=== PATIENT | male | born 1955 | race African-American/Black ===

== ENCOUNTER 2020-01-03 12:40 | Inpatient (IN) | payer OTHER, MEDICARE ==
[2020-01-03] VITALS (10 sets, daily range): BP systolic 80–145; BP diastolic 41–104
[~2020-01-03] VITALS: Ht 167.6 cm; Wt 83.3 kg
[2020-01-03] MEDS ORDERED: SODIUM CHLORIDE 0.9% 1,000 ML IV ONE (14:13)
[2020-01-03 15:15] LABS: BASOPHILS % 0.2 % (0.0-2.0); EOSINOPHILS % 0.4 % (0.0-5.0); HEMATOCRIT. 29.6 % (42.0-52.0); HEMOGLOBIN. 10.2 g/dL (14.0-18.0); LYMPHOCYTES % 23.3 % (20.0-50.0); MEAN CORPUSCULAR HEMOGLOBIN 31.5 pg (28.0-32.0); MEAN CORPUSCULAR VOLUME 91.4 fL (80.0-94.0); MEAN PLATELET VOLUME 7.9 fl (7.4-10.4); MONOCYTES % 12.4 % (2.0-8.0); NEUTROPHILS % 63.7 % (40.0-76.0); PLATELET 321 x1000/uL (130-400); RED BLOOD CELL COUNT 3.24 mill/uL (4.7-6.1); RED CELL DISTRIBUTION WIDTH 16.4 % (11.6-14.6)
[2020-01-03 15:22] LABS: CHLORIDE 97 mEq/L (98-107)
[2020-01-03 15:27] LABS: INR 1.1; PARTIAL THROMBOPLASTIN TIME 28.6 sec (23.4-31.0); PROTHROMBIN TIME 11.2 sec (9.6-11.0)
[2020-01-03] MEDS ORDERED: PIPERACILLIN/TAZ 3.375G PREMIX 50 ML IV ONE (16:15)
[2020-01-03] MEDS ORDERED: VANCOMYCIN 1 G PREMIX 200 ML IV ONE (16:15)
[2020-01-03] MEDS ORDERED: LEVETIRACETAM 500MG PREMIX 100 ML IV ONE (16:30)
[2020-01-03] MEDS ORDERED: NICARDIPINE 40MG/200ML PREMIX 200 ML IV PRN (18:30)
[2020-01-03] MEDS ORDERED: ACETAMINOPHEN 650MG SUPP PR PRN (18:45)
[2020-01-03] MEDS ORDERED: ONDANSETRON HCL 4MG/2ML INJ IV PRN (18:45)
[2020-01-03] MEDS ORDERED: DIPHENHYDRAMINE 50MG/ML VIAL IV PRN (18:45)
[2020-01-03 19:05] LABS: C REACTIVE PROTEIN CARDIAC 6.3 mg/L (0.00-3.00)
[2020-01-03 20:00] LABS: INR 1.1; PROTHROMBIN TIME 11.4 sec (9.6-11.0)
[2020-01-03] MEDS ORDERED: AZITHROMYCIN 500 MG in DEXT 5% WATER 250 ML IV SCH (20:00)
[2020-01-03] MEDS ORDERED: CEFTRIAXONE 1 G PREMIX 50 ML IV SCH (21:00)
[2020-01-03] MEDS ORDERED: NICARDIPINE 50 MG in SODIUM CHLORIDE 0.9% 230 ML IV PRN (21:45)
[2020-01-03] MEDS ORDERED: MORPHINE SULFATE 2 MG/ML CPJ (NOT FOR IM USE) IV PRN (22:00)
[2020-01-03] MEDS: DEXT 5%/LACTATED RINGERS 1,000 ML IV SCH (22:34)
[2020-01-03] MEDS: CEFTRIAXONE 1 G PREMIX 50 ML IV SCH (23:00)
[2020-01-03 23:29] LABS: CLARITY URINE CLEAR (CLEAR); COLOR URINE YELLOW (YELLOW); KETONES URINE NEGATIVE (NEGATIVE); LEUKOCYTE ESTERASE URINE NEGATIVE (NEGATIVE); NITRITE URINE NEGATIVE (NEGATIVE); OCCULT BLOOD URINE 1+ (NEGATIVE); PH URINE 8.5 (4.5-8.0); PROTEIN URINE TRACE (NEGATIVE); SPECIFIC GRAVITY URINE 1.009 (1.005-1.030); UROBILINOGEN URINE 0.2 E.U./dL (0.2-1.0)
[2020-01-03 23:58] LABS: ETHANOL BLOOD < 10 mg/dL
[2020-01-04] VITALS (90 sets, daily range): BP systolic 87–159; BP diastolic 38–117
[2020-01-04] MEDS: DEXAMETHASONE 4MG/ML 1ML VIAL IV SCH ×4 (00:01→18:04)
[2020-01-04 00:02] LABS: CREATINE KINASE 37 IU/L (39-308)
[2020-01-04] MEDS: NICARDIPINE 100 MG in SODIUM CHLORIDE 0.9% 60 ML IV PRN ×2 (00:02→19:31)
[2020-01-04 00:04] LABS: CREATINE KINASE MB FRACTION 2.2 ng/mL (0.5-3.6)
[2020-01-04 04:47] LABS: *AMPHETAMINES SCREEN URINE NEGATIVE (NEGATIVE); *BARBITURATES SCREEN URINE NEGATIVE (NEGATIVE); *BENZODIAZEPINES SCREEN URINE NEGATIVE (NEGATIVE); *COCAINE SCREEN URINE NEGATIVE (NEGATIVE); CANNABINOID URINE SCREEN NEGATIVE (NEGATIVE)
[2020-01-04 04:48] LABS: METHADONE URINE SCREEN NEGATIVE (NEGATIVE); OPIATES URINE SCREEN NEGATIVE (NEGATIVE); PHENCYCLIDINE URINE SCREEN NEGATIVE (NEGATIVE)
[2020-01-04 05:49] LABS: BASOPHILS % 0.6 % (0.0-2.0); EOSINOPHILS % 0.1 % (0.0-5.0); HEMATOCRIT. 28.2 % (42.0-52.0); HEMOGLOBIN. 9.7 g/dL (14.0-18.0); LYMPHOCYTES % 9.1 % (20.0-50.0); MEAN CORPUSCULAR HEMOGLOBIN 31.4 pg (28.0-32.0); MEAN CORPUSCULAR VOLUME 91.5 fL (80.0-94.0); MEAN PLATELET VOLUME 8.3 fl (7.4-10.4); NEUTROPHILS % 85.2 % (40.0-76.0); PLATELET 293 x1000/uL (130-400); RED BLOOD CELL COUNT 3.08 mill/uL (4.7-6.1); RED CELL DISTRIBUTION WIDTH 16.7 % (11.6-14.6)
[2020-01-04 06:05] LABS: CHLORIDE 101 mEq/L (98-107)
[2020-01-04 06:10] LABS: INR 1.1; PARTIAL THROMBOPLASTIN TIME 24.2 sec (23.4-31.0); PROTHROMBIN TIME 11.2 sec (9.6-11.0)
[2020-01-04 06:15] LABS: HDL CHOLESTEROL 29 mg/dL (40-59); LDL CHOLESTEROL 50 mg/dL (5-100)
[2020-01-04 06:16] LABS: CREATINE KINASE 40 IU/L (39-308)
[2020-01-04 06:18] LABS: CREATINE KINASE MB FRACTION 3.3 ng/mL (0.5-3.6)
[2020-01-04] MEDS ORDERED: BACITRACIN 15GM TUBE TOP ONE (06:55)
[2020-01-04] MEDS ORDERED: BACITRACIN 50,000 UNITS/VIAL ONE (06:56)
[2020-01-04] MEDS ORDERED: LIDOCAINE HCL/EPINEPHRINE 1%-EPI 1:100,000 20 ML VIAL ONE (06:56)
[2020-01-04] MEDS ORDERED: THROMBIN (BOVINE) 5000 UNITS/VIAL TOP ONE (06:56)
[2020-01-04] MEDS ORDERED: NEOSTIGMINE METHYLSULFATE 1MG/ML 10 ML VIAL ONE (07:21)
[2020-01-04] MEDS ORDERED: ROCURONIUM BROMIDE 10MG/ML VIAL 5ML IV ONE ×2 (07:21→08:03)
[2020-01-04] MEDS ORDERED: FENTANYL CITRATE/PF 50MCG/ML 2ML VIAL ONE (07:21)
[2020-01-04] MEDS ORDERED: CEFAZOLIN SODIUM 1000MG/VIAL ONE (07:22)
[2020-01-04] MEDS ORDERED: GLYCOPYRROLATE 0.2 MG/ML 2ML VIAL ONE (07:22)
[2020-01-04] MEDS ORDERED: LIDOCAINE HCL/PF 1% 10 MG/ML 5ML VIAL ONE (07:22)
[2020-01-04] MEDS ORDERED: SUCCINYLCHOLINE CHLORIDE 200MG/10ML IV ONE (07:22)
[2020-01-04] MEDS ORDERED: SODIUM CHLORIDE 0.9% 10ML VIAL ONE (07:22)
[2020-01-04] MEDS ORDERED: PROPOFOL 200MG/20ML VIAL IV ONE (07:22)
[2020-01-04] MEDS ORDERED: PHENYLEPHRINE HCL 10 MG/ML 1ML (IV VIAL) IV ONE (07:22)
[2020-01-04] MEDS ORDERED: MIDAZOLAM HCL 2 MG/2 ML VIAL ONE (07:22)
[2020-01-04] MEDS ORDERED: EPHEDRINE SULFATE 50MG/ML VIAL ONE (07:22)
[2020-01-04] MEDS ORDERED: METOCLOPRAMIDE HCL 10MG/2ML VIAL ONE (07:23)
[2020-01-04] MEDS ORDERED: DEXAMETHASONE 4MG/ML 1ML VIAL ONE (07:23)
[2020-01-04] MEDS ORDERED: LEVETIRACETAM 500MG PREMIX 100 ML IV ONE (07:23)
[2020-01-04] MEDS ORDERED: ONDANSETRON HCL 4MG/2ML INJ ONE (07:23)
[2020-01-04] MEDS ORDERED: MANNITOL 20% 0 ML IV ONE (07:23)
[2020-01-04] MEDS ORDERED: DILTIAZEM HCL 5MG/ML 5ML VIAL IV SCH ×2 (09:00)
[2020-01-04] MEDS ORDERED: MORPHINE SULFATE 4 MG/ML CPJ (NOT FOR IM USE) IV ONE (09:00)
[2020-01-04] MEDS: MORPHINE SULFATE 4 MG/ML CPJ (NOT FOR IM USE) IV PRN (09:14)
[2020-01-04] MEDS ORDERED: DEXTROSE 50% WATER 50ML SYRINGE IV PRN (09:15)
[2020-01-04] MEDS: DILTIAZEM HCL 125 MG in DEXT 5% WATER 100 ML IV PRN ×2 (09:15→20:56)
[2020-01-04] MEDS ORDERED: LORAZEPAM 2MG/ML CPJ IV PRN (10:00)
[2020-01-04] MEDS ORDERED: LISI-604 PO (10:59)
[2020-01-04] MEDS ORDERED: LOPHC2 PO (10:59)
[2020-01-04] MEDS ORDERED: ASPI-1497 PO (10:59)
[2020-01-04] MEDS ORDERED: METF-414 PO (10:59)
[2020-01-04] MEDS ORDERED: ATOR40TA70 MT (10:59)
[2020-01-04] MEDS: BLOOD SUGAR DIAGNOSTIC STRIP TEST SCH ×3 (11:59→23:49)
[2020-01-04] MEDS ORDERED: INSULIN LISPRO 100 UNITS/ML SUBCUT SCH (12:00)
[2020-01-04] MEDS: INSULIN LISPRO 100 UNITS/ML SUBCUT SCH ×3 (12:11→23:50)
[2020-01-04] MEDS: CEFAZOLIN 1000MG PREMIX 50 ML IV SCH ×2 (13:12→21:56)
[2020-01-04] MEDS ORDERED: CEFAZOLIN SODIUM 1000MG/VIAL IV SCH (14:00)
[2020-01-04] MEDS: DEXT 5%/LACTATED RINGERS 1,000 ML IV SCH (16:04)
[2020-01-04] MEDS: AZITHROMYCIN 500 MG in DEXT 5% WATER 250 ML IV SCH (20:41)
[2020-01-04] MEDS: LEVETIRACETAM 500MG PREMIX 100 ML IV SCH (20:42)
[2020-01-04] MEDS: CEFTRIAXONE 1 G PREMIX 50 ML IV SCH (20:55)
[2020-01-05] VITALS (93 sets, daily range): BP systolic 85–283; BP diastolic 41–105
[2020-01-05] MEDS: DEXAMETHASONE 4MG/ML 1ML VIAL IV SCH ×5 (00:05→23:39)
[2020-01-05] MEDS: MORPHINE SULFATE 4 MG/ML CPJ (NOT FOR IM USE) IV PRN ×3 (05:20→21:04)
[2020-01-05 05:45] LABS: BASOPHILS % 0.1 % (0.0-2.0); HEMATOCRIT. 22.5 % (42.0-52.0); HEMOGLOBIN. 7.5 g/dL (14.0-18.0); LYMPHOCYTES % 7.8 % (20.0-50.0); MEAN CORPUSCULAR HEMOGLOBIN 30.8 pg (28.0-32.0); MEAN CORPUSCULAR VOLUME 92.1 fL (80.0-94.0); MEAN PLATELET VOLUME 8.1 fl (7.4-10.4); MONOCYTES % 4.5 % (2.0-8.0); NEUTROPHILS % 87.6 % (40.0-76.0); PLATELET 253 x1000/uL (130-400); RED BLOOD CELL COUNT 2.44 mill/uL (4.7-6.1); RED CELL DISTRIBUTION WIDTH 16.2 % (11.6-14.6)
[2020-01-05] MEDS: BLOOD SUGAR DIAGNOSTIC STRIP TEST SCH ×4 (05:51→23:39)
[2020-01-05] MEDS: INSULIN LISPRO 100 UNITS/ML SUBCUT SCH ×4 (05:52→23:40)
[2020-01-05] MEDS: CEFAZOLIN 1000MG PREMIX 50 ML IV SCH (05:53)
[2020-01-05 05:55] LABS: CHLORIDE 105 mEq/L (98-107)
[2020-01-05 06:05] LABS: T4 FREE 1.44 ng/dL (0.76-1.46)
[2020-01-05 06:27] LABS: VITAMIN B12 SERUM 566 pg/mL (211-911)
[2020-01-05] MEDS: DEXT 5%/LACTATED RINGERS 1,000 ML IV SCH (08:46)
[2020-01-05] MEDS: LEVETIRACETAM 500MG PREMIX 100 ML IV SCH ×2 (08:46→21:02)
[2020-01-05] MEDS ORDERED: IPRATROPIUM/ALBUTEROL 0.5-3(2.5)MG/3ML NEB HHN PRN (11:00)
[2020-01-05 11:16] LABS: HEMATOCRIT 26.5 % (42.0-52.0); HEMOGLOBIN 8.9 g/dL (14.0-18.0); MEAN CORPUSCULAR HEMOGLOBIN 30.9 pg (28.0-32.0); MEAN CORPUSCULAR VOLUME 92.1 fL (80.0-94.0); PLATELET 297 x1000/uL (130-400); RED BLOOD CELL COUNT 2.88 mill/uL (4.7-6.1); RED CELL DISTRIBUTION WIDTH 16.8 % (11.6-14.6)
[2020-01-05] MEDS: NICARDIPINE 100 MG in SODIUM CHLORIDE 0.9% 60 ML IV PRN (17:57)
[2020-01-05] MEDS: AZITHROMYCIN 500 MG in DEXT 5% WATER 250 ML IV SCH (20:18)
[2020-01-05] MEDS: CEFTRIAXONE 1 G PREMIX 50 ML IV SCH (21:50)
[2020-01-06] VITALS (87 sets, daily range): BP systolic 44–158; BP diastolic 38–111
[2020-01-06] MEDS: DEXT 5%/LACTATED RINGERS 1,000 ML IV SCH ×2 (01:00→18:50)
[2020-01-06 05:33] LABS: CHLORIDE 104 mEq/L (98-107)
[2020-01-06] MEDS: BLOOD SUGAR DIAGNOSTIC STRIP TEST SCH ×3 (05:54→18:50)
[2020-01-06] MEDS: INSULIN LISPRO 100 UNITS/ML SUBCUT SCH ×3 (05:55→18:50)
[2020-01-06 08:08] LABS: BASOPHILS % 0.2 % (0.0-2.0); HEMATOCRIT. 25.8 % (42.0-52.0); HEMOGLOBIN. 8.7 g/dL (14.0-18.0); LYMPHOCYTES % 7.3 % (20.0-50.0); MEAN CORPUSCULAR VOLUME 91.9 fL (80.0-94.0); MONOCYTES % 4.8 % (2.0-8.0); NEUTROPHILS % 87.7 % (40.0-76.0); PLATELET 277 x1000/uL (130-400); RED CELL DISTRIBUTION WIDTH 16.5 % (11.6-14.6)
[2020-01-06] MEDS: LEVETIRACETAM 500MG PREMIX 100 ML IV SCH ×2 (09:51→20:54)
[2020-01-06] MEDS: MORPHINE SULFATE 2 MG/ML CPJ (NOT FOR IM USE) IV PRN ×2 (12:35→19:56)
[2020-01-06] MEDS: INSULIN GLARGINE UD 100 UNITS/ML SYR SUBCUT SCH ×2 (12:36→21:30)
[2020-01-06] MEDS ORDERED: DIGOXIN 500MCG/2ML AMP IV NR (17:15)
[2020-01-06] MEDS: AZITHROMYCIN 500 MG in DEXT 5% WATER 250 ML IV SCH (19:56)
[2020-01-06] MEDS: CEFTRIAXONE 1 G PREMIX 50 ML IV SCH (21:29)
[2020-01-07] VITALS (95 sets, daily range): BP systolic 96–147; BP diastolic 38–94
[2020-01-07] MEDS: BLOOD SUGAR DIAGNOSTIC STRIP TEST SCH ×5 (00:14→23:06)
[2020-01-07] MEDS: MORPHINE SULFATE 2 MG/ML CPJ (NOT FOR IM USE) IV PRN ×2 (00:17→02:41)
[2020-01-07] MEDS: INSULIN LISPRO 100 UNITS/ML SUBCUT SCH ×5 (00:18→23:05)
[2020-01-07] MEDS: NICARDIPINE 100 MG in SODIUM CHLORIDE 0.9% 60 ML IV PRN ×3 (02:22→21:04)
[2020-01-07 04:54] LABS: HEMATOCRIT. 25.8 % (42.0-52.0); HEMOGLOBIN. 8.6 g/dL (14.0-18.0); MEAN CORPUSCULAR HEMOGLOBIN 30.4 pg (28.0-32.0); MEAN PLATELET VOLUME 7.4 fl (7.4-10.4); PLATELET 300 x1000/uL (130-400); RED BLOOD CELL COUNT 2.83 mill/uL (4.7-6.1)
[2020-01-07 05:04] LABS: CHLORIDE 101 mEq/L (98-107)
[2020-01-07 08:45] LABS: PLATELET ESTIMATE NORMAL
[2020-01-07] MEDS: LEVETIRACETAM 500MG PREMIX 100 ML IV SCH ×2 (08:53→22:00)
[2020-01-07] MEDS: DEXT 5%/LACTATED RINGERS 1,000 ML IV SCH (10:20)
[2020-01-07] MEDS: INSULIN GLARGINE UD 100 UNITS/ML SYR SUBCUT SCH ×2 (11:21→23:00)
[2020-01-07] MEDS: DILTIAZEM HCL 30MG TABLET PO SCH ×3 (11:23→23:05)
[2020-01-07] MEDS: LISINOPRIL 20MG TABLET PO SCH (11:24)
[2020-01-07] MEDS: AZITHROMYCIN 500 MG in DEXT 5% WATER 250 ML IV SCH (20:06)
[2020-01-07] MEDS: CEFTRIAXONE 1 G PREMIX 50 ML IV SCH (22:35)
[2020-01-08] VITALS (83 sets, daily range): BP systolic 40–162; BP diastolic 28–95
[2020-01-08] MEDS: MORPHINE SULFATE 4 MG/ML CPJ (NOT FOR IM USE) IV PRN (04:40)
[2020-01-08] MEDS: BLOOD SUGAR DIAGNOSTIC STRIP TEST SCH ×4 (05:30→23:26)
[2020-01-08] MEDS: INSULIN LISPRO 100 UNITS/ML SUBCUT SCH ×4 (05:30→23:26)
[2020-01-08] MEDS: DILTIAZEM HCL 30MG TABLET PO SCH ×4 (05:31→23:34)
[2020-01-08 06:56] LABS: BASOPHILS % 0.1 % (0.0-2.0); HEMATOCRIT. 27.4 % (42.0-52.0); LYMPHOCYTES % 9.9 % (20.0-50.0); MEAN CORPUSCULAR HEMOGLOBIN 29.9 pg (28.0-32.0); MEAN CORPUSCULAR VOLUME 90.7 fL (80.0-94.0); MONOCYTES % 9.9 % (2.0-8.0); NEUTROPHILS % 80.1 % (40.0-76.0); PLATELET 277 x1000/uL (130-400); RED BLOOD CELL COUNT 3.02 mill/uL (4.7-6.1); RED CELL DISTRIBUTION WIDTH 15.9 % (11.6-14.6)
[2020-01-08 07:08] LABS: CHLORIDE 99 mEq/L (98-107)
[2020-01-08] MEDS: LISINOPRIL 20MG TABLET PO SCH (09:19)
[2020-01-08] MEDS: LEVETIRACETAM 500MG PREMIX 100 ML IV SCH ×2 (09:19→20:33)
[2020-01-08] MEDS: INSULIN GLARGINE UD 100 UNITS/ML SYR SUBCUT SCH ×2 (10:53→21:42)
[2020-01-09] VITALS (12 sets, daily range): BP systolic 92–165; BP diastolic 23–84
[2020-01-09] MEDS: MORPHINE SULFATE 4 MG/ML CPJ (NOT FOR IM USE) IV PRN (02:44)
[2020-01-09] MEDS: DILTIAZEM HCL 30MG TABLET PO SCH (05:35)
[2020-01-09] MEDS: INSULIN LISPRO 100 UNITS/ML SUBCUT SCH ×4 (05:35→23:23)
[2020-01-09] MEDS: BLOOD SUGAR DIAGNOSTIC STRIP TEST SCH ×3 (05:35→18:28)
[2020-01-09] MEDS: LEVETIRACETAM 500MG PREMIX 100 ML IV SCH ×2 (08:14→21:45)
[2020-01-09] MEDS: LISINOPRIL 20MG TABLET PO SCH (08:14)
[2020-01-09] MEDS: INSULIN GLARGINE UD 100 UNITS/ML SYR SUBCUT SCH ×2 (10:00→23:23)
[2020-01-09] MEDS: DILTIAZEM HCL 60MG TABLET PO SCH ×2 (12:13→21:47)
[2020-01-10] VITALS (10 sets, daily range): BP systolic 88–137; BP diastolic 45–102
[2020-01-10] MEDS: BLOOD SUGAR DIAGNOSTIC STRIP TEST SCH ×3 (00:28→12:00)
[2020-01-10] MEDS: DILTIAZEM HCL 60MG TABLET PO SCH ×2 (05:29→13:57)
[2020-01-10] MEDS: INSULIN LISPRO 100 UNITS/ML SUBCUT SCH ×2 (05:30→12:00)
[2020-01-10] MEDS: LEVETIRACETAM 500MG PREMIX 100 ML IV SCH (10:10)
[2020-01-10] MEDS: INSULIN GLARGINE UD 100 UNITS/ML SYR SUBCUT SCH (10:11)
[2020-01-10] MEDS: LISINOPRIL 20MG TABLET PO SCH (10:12)
[2020-01-10] MEDS ORDERED: KEPP500 MT ×2 (11:33→15:50)
[2020-01-10] MEDS ORDERED: DILT180C66 MT ×2 (11:33→15:50)
== END 2020-01-10 18:39 | disposition home or self-care (01) | DRG 26 ==
LOC: ER 12:40 → MICUSO 16:51 → EDBEDREQ 16:55 → EDBEDREQTM 16:55 → ENRESERV 19:44 → MICUNO 01-05 19:30 → 5EST 01-08 22:10
PROVIDERS: ADMIT Internal Medicine; ATTEND Internal Medicine
PROC: 00U207Z Supplement Dura Mater with Autologous Tissue Substitute, Open Approach (ICD-10-PCS; principal; 2020-01-04)
PROC: 00C40ZZ Extirpation of Matter from Intracranial Subdural Space, Open Approach (ICD-10-PCS; 2020-01-04)
PROC: 00H632Z Insertion of Monitoring Device into Cerebral Ventricle, Percutaneous Approach (ICD-10-PCS; 2020-01-04)
PROC: 009400Z Drainage of Intracranial Subdural Space with Drainage Device, Open Approach (ICD-10-PCS; 2020-01-04)
PROC: 0NU007Z Supplement Skull with Autologous Tissue Substitute, Open Approach (ICD-10-PCS; 2020-01-04)
PROC: 4A103BD Monitoring of Intracranial Pressure, Percutaneous Approach (ICD-10-PCS; 2020-01-04)
PROC: 4A103BD Monitoring of Intracranial Pressure, Percutaneous Approach (ICD-10-PCS; 2020-01-04)
DX: S06.5X0A Traumatic subdural hemorrhage without loss of consciousness, initial encounter (principal); G81.94 Hemiplegia, unspecified affecting left nondominant side; I48.20 Chronic atrial fibrillation, unspecified; R47.01 Aphasia; G93.40 Encephalopathy, unspecified; E11.9 Type 2 diabetes mellitus without complications; G93.89 Other specified disorders of brain; F10.21 Alcohol dependence, in remission; D63.8 Anemia in other chronic diseases classified elsewhere; R47.1 Dysarthria and anarthria; I10 Essential (primary) hypertension; E05.90 Thyrotoxicosis, unspecified without thyrotoxic crisis or storm; E78.5 Hyperlipidemia, unspecified; I27.20 Pulmonary hypertension, unspecified; I36.1 Nonrheumatic tricuspid (valve) insufficiency; W18.39XA Other fall on same level, initial encounter; Z20.828 Contact with and (suspected) exposure to other viral communicable diseases; Z79.82 Long term (current) use of aspirin; Z79.84 Long term (current) use of oral hypoglycemic drugs; Z79.899 Other long term (current) drug therapy; Z98.2 Presence of cerebrospinal fluid drainage device; Y93.89 Activity, other specified; Y92.099 Unspecified place in other non-institutional residence as the place of occurrence of the external cause; Y99.8 Other external cause status; Z82.49 Family history of ischemic heart disease and other diseases of the circulatory system
CPT/HCPCS: 36415; 71045; 80048; 80053; 80061; 80305; 80320; 81003; 82550; 82553; 82607; 82728; 82962; 83036; 83605; 83615; 83880; 84439; 84443; 84481; 84484; 85025; 85027; 85379; 86141; 86850; 86900; 88305; 93005; 93306; 93970; 94002; 97162; 99291; C1713; J0330; J0456; J0690; J0696; J1100; J1160; J1200; J1815; J1953; J2250; J2270; J2370; J2405; J2543; J2704; J2710; J2765; J3010; J3370; J3490; J7030; J7050; J7060; J7121; G0480; U0003-CS

== ENCOUNTER 2022-03-27 21:10 | Inpatient (IN) | payer OTHER, MEDICARE ==
[~2022-03-27] VITALS: Ht 170.2 cm; Wt 87.1 kg
[~2022-03-27 21:10] MED LIST: ATOR40TA70 MT; DILT180C66 MT; KEPP500 MT; LISI20TA31 PO; METF-414 PO
[2022-03-27] MEDS ORDERED: MORPHINE SULFATE 4 MG/ML CPJ (NOT FOR IM USE) IV STA (21:35)
[2022-03-27] MEDS ORDERED: ONDANSETRON HCL 4MG/2ML INJ IV STA (21:35)
[2022-03-27] MEDS ORDERED: SODIUM CHLORIDE 0.9% 1,000 ML IV ONE (21:45)
[2022-03-27 22:12] LABS: BASOPHILS % 1.1 % (0.0-2.0); EOSINOPHILS % 2.9 % (0.0-5.0); HEMATOCRIT. 33.7 % (42.0-52.0); HEMOGLOBIN. 11.5 g/dL (14.0-18.0); LYMPHOCYTES % 30.8 % (20.0-50.0); MEAN CORPUSCULAR HEMOGLOBIN 32.8 pg (28.0-32.0); MEAN CORPUSCULAR VOLUME 96.2 fL (80.0-94.0); MEAN PLATELET VOLUME 8.5 fl (7.4-10.4); MONOCYTES % 10.3 % (2.0-8.0); NEUTROPHILS % 54.9 % (40.0-76.0); PLATELET 213 x1000/uL (130-400); RED BLOOD CELL COUNT 3.51 mill/uL (4.7-6.1); RED CELL DISTRIBUTION WIDTH 14.1 % (11.6-14.6)
[2022-03-27 22:21] LABS: PROTHROMBIN TIME 11.1 sec (9.6-11.0)
[2022-03-27 22:39] LABS: CHLORIDE 102 mEq/L (98-107)
[2022-03-27] MEDS ORDERED: HEPARIN 25,000 UNITS PREMIX 250 ML IV ONE (23:15)
[2022-03-27] MEDS ORDERED: NITROGLYCERIN 0.4MG TABLET SL SL PRN (23:15)
[2022-03-27] MEDS ORDERED: HEPARIN 5000 UNITS/ML VIAL IV ONE (23:15)
[2022-03-27] MEDS ORDERED: HEPARIN 60 UNITS/KG BOLUS IV NR (23:45)
[2022-03-28] MEDS ORDERED: HEPARIN 25,000 UNITS PREMIX 250 ML IV SCH (00:15)
[2022-03-28 06:25] VITALS: BP 108/90
[2022-03-28] MEDS ORDERED: HEPARIN BOLUS PRN aPTT <30 IV (07:00)
[2022-03-28] MEDS ORDERED: HEPARIN BOLUS PRN aPTT 30-44 IV (07:00)
[2022-03-28 08:00] VITALS: BP 121/91
[2022-03-28] MEDS ORDERED: HYDROCODONE/ACETAMINOPHEN 5/325MG TABLET PO PRN ×2 (09:00→11:00)
[2022-03-28] MEDS ORDERED: GUAIFENESIN 200MG/10ML SUGAR FREE UDC PO PRN (11:00)
[2022-03-28] MEDS ORDERED: ACETAMINOPHEN 325MG TABLET PO PRN (11:00)
[2022-03-28] MEDS ORDERED: CLONIDINE 0.1MG TABLET PO PRN (11:00)
[2022-03-28] MEDS ORDERED: DOCUSATE SODIUM 100MG CAPSULE PO PRN (11:00)
[2022-03-28] MEDS ORDERED: ONDANSETRON HCL 4MG/2ML INJ IV PRN (11:00)
[2022-03-28] MEDS ORDERED: MAGNESIUM/ALUMINUM HYDROXIDE/SIMETHICONE 30ML UDC PO PRN (11:00)
[2022-03-28] MEDS ORDERED: TRAMADOL 50MG TABLET PO PRN (11:00)
[2022-03-28] MEDS ORDERED: DILTIAZEM HCL 5MG/ML 5ML VIAL IV PRN ×2 (11:30)
[2022-03-28] MEDS: METFORMIN HCL 500MG TABLET PO SCH (11:52)
[2022-03-28 12:00] VITALS: BP 137/93
[2022-03-28] MEDS: DILTIAZEM HCL 60MG TABLET PO SCH ×2 (14:47→21:39)
[2022-03-28] MEDS: NITROGLYCERIN OINT 1GM/INCH UDPKT TD SCH ×2 (14:48→21:41)
[2022-03-28 15:33] VITALS: BP 140/106
[2022-03-28] MEDS: MORPHINE SULFATE 2 MG/ML CPJ (NOT FOR IM USE) IV PRN ×2 (15:35→21:59)
[2022-03-28] MEDS: LEVETIRACETAM 500MG TABLET PO SCH (18:09)
[2022-03-28 20:00] VITALS: BP 127/95
[2022-03-28] MEDS: ENOXAPARIN 100MG/ML SYR SUBCUT SCH (21:00)
[2022-03-28] MEDS ORDERED: DEXTROSE 50% WATER 50ML SYRINGE IV PRN (21:30)
[2022-03-28] MEDS: ATORVASTATIN CALCIUM 40MG TABLET PO SCH (21:41)
[2022-03-28] MEDS ORDERED: NALOXONE HCL 0.4MG/ML VIAL IV PRN (21:45)
[2022-03-29] VITALS: BP 99/57
[2022-03-29 04:00] VITALS: BP 108/67
[2022-03-29] MEDS: DILTIAZEM HCL 60MG TABLET PO SCH ×4 (06:00→21:11)
[2022-03-29] MEDS: NITROGLYCERIN OINT 1GM/INCH UDPKT TD SCH ×3 (06:00→21:11)
[2022-03-29] MEDS: INSULIN LISPRO 100 UNITS/ML SUBCUT SCH ×4 (06:58→20:57)
[2022-03-29] MEDS: BLOOD SUGAR DIAGNOSTIC STRIP TEST SCH ×4 (06:58→20:58)
[2022-03-29 07:34] LABS: BASOPHILS % 0.8 % (0.0-2.0); EOSINOPHILS % 0.9 % (0.0-5.0); HEMATOCRIT. 33.4 % (42.0-52.0); HEMOGLOBIN. 11.6 g/dL (14.0-18.0); LYMPHOCYTES % 22.5 % (20.0-50.0); MEAN CORPUSCULAR HEMOGLOBIN 33.2 pg (28.0-32.0); MEAN CORPUSCULAR VOLUME 95.3 fL (80.0-94.0); MEAN PLATELET VOLUME 9.1 fl (7.4-10.4); NEUTROPHILS % 62.8 % (40.0-76.0); PLATELET 176 x1000/uL (130-400); RED BLOOD CELL COUNT 3.51 mill/uL (4.7-6.1); RED CELL DISTRIBUTION WIDTH 14.2 % (11.6-14.6)
[2022-03-29 08:21] VITALS: BP 126/85
[2022-03-29] MEDS: ASPIRIN 81MG EC TABLET PO SCH (08:33)
[2022-03-29] MEDS: LEVETIRACETAM 500MG TABLET PO SCH ×2 (08:33→18:44)
[2022-03-29] MEDS: METFORMIN HCL 500MG TABLET PO SCH (08:34)
[2022-03-29] MEDS ORDERED: DILTIAZEM HCL 180MG CAPSULE CD 24HR PO SCH (09:00)
[2022-03-29] MEDS ORDERED: LISINOPRIL 20MG TABLET PO SCH (09:00)
[2022-03-29] MEDS: ENOXAPARIN 100MG/ML SYR SUBCUT SCH (09:00)
[2022-03-29 09:58] LABS: CHLORIDE 100 mEq/L (98-107)
[2022-03-29 10:06] LABS: LDL CHOLESTEROL 48 mg/dL (5-100)
[2022-03-29 10:26] LABS: HDL CHOLESTEROL 36 mg/dL (40-59)
[2022-03-29 12:00] VITALS: BP 103/68
[2022-03-29] MEDS ORDERED: MAGNESIUM 2 G PREMIX 50 ML IV NR (12:00)
[2022-03-29 16:13] VITALS: BP 100/64
[2022-03-29 18:05] LABS: TOTAL IRON BINDING CAPACITY 310 ug/dL (250-450)
[2022-03-29 20:00] VITALS: BP 102/62
[2022-03-29] MEDS: ATORVASTATIN CALCIUM 40MG TABLET PO SCH (20:56)
[2022-03-30] VITALS (21 sets, daily range): BP systolic 68–133; BP diastolic 28–83
[2022-03-30 05:35] LABS: BASOPHILS % 0.7 % (0.0-2.0); EOSINOPHILS % 1.1 % (0.0-5.0); HEMATOCRIT. 32.5 % (42.0-52.0); HEMOGLOBIN. 11.1 g/dL (14.0-18.0); LYMPHOCYTES % 24.9 % (20.0-50.0); MEAN CORPUSCULAR HEMOGLOBIN 32.5 pg (28.0-32.0); MEAN CORPUSCULAR VOLUME 95.2 fL (80.0-94.0); MEAN PLATELET VOLUME 9.4 fl (7.4-10.4); MONOCYTES % 13.9 % (2.0-8.0); NEUTROPHILS % 59.4 % (40.0-76.0); PLATELET 157 x1000/uL (130-400); RED BLOOD CELL COUNT 3.41 mill/uL (4.7-6.1); RED CELL DISTRIBUTION WIDTH 14.4 % (11.6-14.6)
[2022-03-30] MEDS: NITROGLYCERIN OINT 1GM/INCH UDPKT TD SCH ×3 (05:38→21:01)
[2022-03-30] MEDS: BLOOD SUGAR DIAGNOSTIC STRIP TEST SCH ×4 (05:38→20:49)
[2022-03-30 05:45] LABS: CHLORIDE 103 mEq/L (98-107)
[2022-03-30] MEDS ORDERED: DILTIAZEM 125MG/125ML PMX 125 ML IV SCH (05:45)
[2022-03-30] MEDS ORDERED: DIGOXIN 500MCG/2ML AMP IV NR (06:00)
[2022-03-30] MEDS: INSULIN LISPRO 100 UNITS/ML SUBCUT SCH ×5 (07:50→21:00)
[2022-03-30] MEDS: METFORMIN HCL 500MG TABLET PO SCH (09:00)
[2022-03-30] MEDS: LISINOPRIL 20MG TABLET PO SCH (09:00)
[2022-03-30] MEDS: LEVETIRACETAM 500MG TABLET PO SCH ×2 (09:00→18:10)
[2022-03-30] MEDS: ASPIRIN 81MG EC TABLET PO SCH (09:00)
[2022-03-30] MEDS: SODIUM CHLORIDE 0.45% 1,000 ML IV SCH (09:28)
[2022-03-30] MEDS ORDERED: IODIXANOL 320MG/ML 100 ML BOTTLE IV ONE ×2 (11:06→12:31)
[2022-03-30] MEDS ORDERED: MIDAZOLAM HCL 2 MG/2 ML VIAL ONE (11:07)
[2022-03-30] MEDS ORDERED: HEPARIN 1000 UNITS/ML 10ML ONE (11:07)
[2022-03-30] MEDS ORDERED: FENTANYL CITRATE/PF 50MCG/ML 2ML VIAL ONE (11:07)
[2022-03-30] MEDS ORDERED: LIDOCAINE HCL/PF 2% 20MG/ML 5 ML/VIAL ONE (11:08)
[2022-03-30] MEDS ORDERED: FUROSEMIDE 20MG/2ML VIAL ONE (12:03)
[2022-03-30] MEDS ORDERED: CLOPIDOGREL 75MG TABLET ONE (12:32)
[2022-03-30] MEDS ORDERED: ASPIRIN 325MG EC TABLET PO ONE (12:32)
[2022-03-30] MEDS ORDERED: ATROPINE SULFATE 1MG/10ML SYR IV PRN (13:00)
[2022-03-30] MEDS ORDERED: ONDANSETRON HCL 4MG/2ML INJ IV PRN (13:00)
[2022-03-30] MEDS ORDERED: ACETAMINOPHEN 325MG TABLET PO PRN (13:00)
[2022-03-30] MEDS ORDERED: POTASSIUM CHLORIDE 20MEQ TABLET SR PO SCH (13:15)
[2022-03-30] MEDS ORDERED: DIGOXIN 250MCG TABLET PO SCH (13:15)
[2022-03-30] MEDS: CARVEDILOL 3.125 MG TABLET PO SCH (20:49)
[2022-03-30] MEDS: ATORVASTATIN CALCIUM 40MG TABLET PO SCH (21:20)
[2022-03-31] VITALS (39 sets, daily range): BP systolic 82–136; BP diastolic 17–92
[2022-03-31] MEDS: SODIUM CHLORIDE 0.45% 1,000 ML IV SCH (03:15)
[2022-03-31 05:30] LABS: BASOPHILS % 0.7 % (0.0-2.0); EOSINOPHILS % 1.8 % (0.0-5.0); HEMATOCRIT. 35.5 % (42.0-52.0); HEMOGLOBIN. 11.9 g/dL (14.0-18.0); LYMPHOCYTES % 23.8 % (20.0-50.0); MEAN CORPUSCULAR HEMOGLOBIN 32.2 pg (28.0-32.0); MEAN CORPUSCULAR VOLUME 95.9 fL (80.0-94.0); MEAN PLATELET VOLUME 9.2 fl (7.4-10.4); MONOCYTES % 13.6 % (2.0-8.0); NEUTROPHILS % 60.1 % (40.0-76.0); PLATELET 159 x1000/uL (130-400); RED CELL DISTRIBUTION WIDTH 14.4 % (11.6-14.6)
[2022-03-31 05:37] LABS: CHLORIDE 103 mEq/L (98-107)
[2022-03-31] MEDS: NITROGLYCERIN OINT 1GM/INCH UDPKT TD SCH ×3 (05:40→20:24)
[2022-03-31] MEDS: INSULIN LISPRO 100 UNITS/ML SUBCUT SCH ×4 (08:20→22:05)
[2022-03-31] MEDS: BLOOD SUGAR DIAGNOSTIC STRIP TEST SCH ×4 (08:20→21:00)
[2022-03-31] MEDS: LEVETIRACETAM 500MG TABLET PO SCH ×2 (08:43→16:25)
[2022-03-31] MEDS: CARVEDILOL 3.125 MG TABLET PO SCH ×2 (08:43→20:24)
[2022-03-31] MEDS: METFORMIN HCL 500MG TABLET PO SCH (08:43)
[2022-03-31] MEDS: CLOPIDOGREL 75MG TABLET PO SCH (08:43)
[2022-03-31] MEDS: DIGOXIN 250MCG TABLET PO SCH (08:43)
[2022-03-31] MEDS: ASPIRIN 81MG TABLET PO SCH (08:43)
[2022-03-31] MEDS: POTASSIUM CHLORIDE 20MEQ TABLET SR PO SCH (08:43)
[2022-03-31] MEDS: LISINOPRIL 20MG TABLET PO SCH (08:44)
[2022-03-31] MEDS ORDERED: DIGOXIN 50MCG/ML ORAL SYR PO SCH (09:00)
[2022-03-31] MEDS ORDERED: FUROSEMIDE 20MG TABLET PO SCH (09:00)
[2022-03-31] MEDS ORDERED: ASPIRIN 325MG TABLET PO SCH (09:00)
[2022-03-31] MEDS: FUROSEMIDE 40MG/4ML VIAL IVP SCH (13:16)
[2022-03-31] MEDS: ATORVASTATIN CALCIUM 40MG TABLET PO SCH (22:04)
[2022-04-01] VITALS (42 sets, daily range): BP systolic 85–148; BP diastolic 44–98
[2022-04-01] MEDS: NITROGLYCERIN OINT 1GM/INCH UDPKT TD SCH (05:51)
[2022-04-01] MEDS: INSULIN LISPRO 100 UNITS/ML SUBCUT SCH ×4 (08:20→21:24)
[2022-04-01] MEDS: BLOOD SUGAR DIAGNOSTIC STRIP TEST SCH ×4 (08:36→21:13)
[2022-04-01] MEDS ORDERED: LISINOPRIL 5MG TABLET PO SCH (09:00)
[2022-04-01] MEDS: ASPIRIN 81MG TABLET PO SCH (09:11)
[2022-04-01] MEDS: METFORMIN HCL 500MG TABLET PO SCH (09:11)
[2022-04-01] MEDS: CLOPIDOGREL 75MG TABLET PO SCH (09:11)
[2022-04-01] MEDS: CARVEDILOL 3.125 MG TABLET PO SCH ×2 (09:11→21:00)
[2022-04-01] MEDS: DIGOXIN 250MCG TABLET PO SCH (09:11)
[2022-04-01] MEDS: LEVETIRACETAM 500MG TABLET PO SCH ×2 (09:11→18:32)
[2022-04-01] MEDS: FUROSEMIDE 40MG/4ML VIAL IVP SCH (09:11)
[2022-04-01] MEDS: POTASSIUM CHLORIDE 20MEQ TABLET SR PO SCH (09:32)
[2022-04-01 17:00] LABS: VITAMIN B12 SERUM 260 pg/mL (211-911)
[2022-04-01 18:58] LABS: FOLIC ACID (FOLATE) SERUM > 20.00 ng/mL (>5.38)
[2022-04-01] MEDS: ATORVASTATIN CALCIUM 40MG TABLET PO SCH (21:24)
[2022-04-02] VITALS: BP 95/80
== END 2022-04-02 01:15 | disposition short-term general hospital (02) | DRG 246 ==
LOC: ER 21:10 → MICUSO 03-28 02:45 → 6WST 03-28 07:09 → 3WST 03-30 08:18 → CVICU 03-30 13:07
PROVIDERS: ADMIT Hospitalist; ATTEND Hospitalist
PROC: 027035Z Dilation of Coronary Artery, One Artery with Two Drug-eluting Intraluminal Devices, Percutaneous Approach (ICD-10-PCS; principal; 2022-03-30)
PROC: 4A023N7 Measurement of Cardiac Sampling and Pressure, Left Heart, Percutaneous Approach (ICD-10-PCS; 2022-03-30)
PROC: B211YZZ Fluoroscopy of Multiple Coronary Arteries using Other Contrast (ICD-10-PCS; 2022-03-30)
PROC: B215YZZ Fluoroscopy of Left Heart using Other Contrast (ICD-10-PCS; 2022-03-30)
DX: I25.10 Atherosclerotic heart disease of native coronary artery without angina pectoris (principal); I21.4 Non-ST elevation (NSTEMI) myocardial infarction; I62.03 Nontraumatic chronic subdural hemorrhage; D68.59 Other primary thrombophilia; E87.1 Hypo-osmolality and hyponatremia; I50.40 Unspecified combined systolic (congestive) and diastolic (congestive) heart failure; D63.8 Anemia in other chronic diseases classified elsewhere; Z20.822 Contact with and (suspected) exposure to COVID-19; I27.20 Pulmonary hypertension, unspecified; E11.9 Type 2 diabetes mellitus without complications; I48.91 Unspecified atrial fibrillation; E78.00 Pure hypercholesterolemia, unspecified; E78.5 Hyperlipidemia, unspecified; E83.42 Hypomagnesemia; E80.6 Other disorders of bilirubin metabolism; E05.90 Thyrotoxicosis, unspecified without thyrotoxic crisis or storm; I11.0 Hypertensive heart disease with heart failure; M94.0 Chondrocostal junction syndrome [Tietze]; I08.1 Rheumatic disorders of both mitral and tricuspid valves; F10.10 Alcohol abuse, uncomplicated; F17.200 Nicotine dependence, unspecified, uncomplicated; Z79.899 Other long term (current) drug therapy; Z82.49 Family history of ischemic heart disease and other diseases of the circulatory system; Z86.73 Personal history of transient ischemic attack (TIA), and cerebral infarction without residual deficits; Z98.2 Presence of cerebrospinal fluid drainage device
CPT/HCPCS: 36415; 71045; 80048; 80053; 80061; 82607; 82746; 82962; 83036; 83540; 83550; 83735; 83880; 84443; 84484; 85025; 85347; 86850; 86900; 87426; 92928; 93005; 93306; 93458; 93970; 99285; C1725; C1769; C1874; C1887; C1893; J1160; J1644; J1815; J1940; J2250; J2270; J2405; J3010; J3475; J3490; J7030; Q9967